=== PATIENT | male | born 1945 | race Caucasian/White ===

== ENCOUNTER 2022-03-25 13:52 | Emergency (ER) | payer MEDICARE ==
[~2022-03-25] VITALS: Ht 172.7 cm; Wt 72.0 kg
[~2022-03-25 13:52] MED LIST: AMLO10TA13 PO; APIX5TAB3 PO; ATEN50TA2 PO; ATOR10TA70 PO; ERGO500056 PO; FENO145T25 PO; FLO0.4C PO; FURO20TA4 PO; GLIM4TAB7 PO; LANS30CA56 PO; MULT-1085 PO; OMEG-79 PO
[2022-03-25 14:28] VITALS: BP 169/60
[2022-03-25] MEDS ORDERED: LIDOcaine/epinephrine/tetracaine TOPICAL sol 3 ML syringe TOP ONE (15:30)
[2022-03-25] MEDS ORDERED: IOHEXOL 12MG/ML oral solution 500 ML BOTTLE PO ONE (15:35)
== END 2022-03-25 17:31 | disposition home or self-care (01) ==
LOC: ER 13:52
DX: S51.812A Laceration without foreign body of left forearm, initial encounter (principal); I48.91 Unspecified atrial fibrillation; I12.0 Hypertensive chronic kidney disease with stage 5 chronic kidney disease or end stage renal disease; N18.6 End stage renal disease; Z99.2 Dependence on renal dialysis; Z85.118 Personal history of other malignant neoplasm of bronchus and lung; Z79.899 Other long term (current) drug therapy; W19.XXXA Unspecified fall, initial encounter; Y93.89 Activity, other specified; Y92.89 Other specified places as the place of occurrence of the external cause; Y99.8 Other external cause status
CPT/HCPCS: 99282; J3490; A6449